=== PATIENT | female | born 1980 | race Caucasian/White ===

== ENCOUNTER 2017-12-24 01:36 | Inpatient (IN) | payer MEDICAID ==
[2017-12-24] MEDS ORDERED: NORMAL SALINE 1000 ML 1,000 ML IV ONE (02:10)
--- NOTE | 2017-12-24 02:10 | ER Document Report ---
ED General - General Chief Complaint: Chest Pain > 30 Stated Complaint: CHEST PAIN Time Seen by Provider: 12/24/17 02:04 Notes: Patient is a 37-year-old female who presents with complaint of chest pain shortness of breath. She says she has felt short of breath for approximately a week. Today started having chest pain and felt much more short of breath. She also has noticed some swelling and pain in her left leg. No fevers. No formed. No diarrhea. Patient has no history of PE or DVT. She does smoke. She denies history of asthma. He does take Percocet occasionally due to previous history of wedge compression fractures in her back. She also takes Adderall. There has been no recent changes in the dosages of her medications. Her mother has a history of PE and DVT. TRAVEL OUTSIDE OF THE [place] IN LAST 30 DAYS: No - Related Data Allergies/Adverse Reactions: sulfamethoxazole [From Bactrim] Allergy (Verified 12/24/17 02:19) trimethoprim [From Bactrim] Allergy (Verified 12/24/17 02:19) Past Medical History - Social History Smoking Status: Current Every Day Smoker Frequency of alcohol use: None Drug Abuse: None Family History: Reviewed & Not Pertinent Review of Systems - Review of Systems Notes: My Normal Review Basic REVIEW OF SYSTEMS: CONSTITUTIONAL : Denies fever, chills, or sweats. Denies recent illness. EENT: Denies eye, ear, throat, or mouth pain or symptoms. Denies nasal or sinus congestion. CARDIOVASCULAR: Has chest pain RESPIRATORY: Difficulty breathing. GASTROINTESTINAL: Denies abdominal pain. Denies nausea, vomiting, or diarrhea. GENITOURINARY: Denies difficulty urinating, painful urination, burning, frequency, or blood in urine. MUSCULOSKELETAL: Denies neck or back pain or joint pain or swelling. SKIN: Denies rash or skin lesions. NEUROLOGICAL: Denies altered mental status or loss of consciousness. Denies headache. Denies weakness or paralysis or loss of use of either side. Denies problems with gait or speech. Denies sensory or motor loss. ALL OTHER SYSTEMS REVIEWED AND NEGATIVE. Physical Exam - Vital signs Vitals: Resp Pulse Ox 19 92 12/24/17 01:54 12/24/17 01:54 - Notes Notes: General Appearance: Well nourished, alert, cooperative, mild acute distress, no obvious discomfort. Vitals: reviewed, See vital signs table. Head: no swelling or tenderness to the head Eyes: PERRL, EOMI, Conjuctiva clear Mouth: No decreasd moisture Neck: Supple, no neck tenderness, No thyromegaly Lungs: No wheezing, No rales, No rhonci, No accessory muscle use, good air exchange bilaterally. Heart: Tachycardic rate, Regular rythm, No murmur, no rub Abdomen: Normal BS, soft, No rigidity, No abdominal tenderness, No guarding, no rebound, no abdominal masses, no organomegaly Extremities: strength 5/5 in all extremities, good pulses in all extremities, no swelling or tenderness in the extremities, no edema. Skin: warm, dry, appropriate color, no rash Neuro: speech clear, oriented x 3, normal affect, responds appropriately to questions. Course - Re-evaluation Re-evalutation: 12/24/17 02:09 Patient's history is concerning for PE. We are obtaining lab work and will place an IV. I will order quick portable chest x-ray just to make sure were not missing a pneumothorax or something that does not require CT scan. I suspect that the chest x-ray will be normal. Once I see she has a normal chest x-ray I will order the CT angio of her chest. Patient's blood pressure is normal. Heart rate is little bit high. She is currently stable. 12/24/17 02:56 Since chest x-ray shows possibly pneumonia. Clinically history is not consistent with pneumonia in that she has not had congestion or fevers. Sometimes pulmonary emboli can cause similar infiltrative processes on chest x- ray. Her clinical history is much more concerning for pulmonary emboli. I will continue with a CTA of the chest. I will order flu swab as well. 12/24/17 04:20 12/24/17 04:23 CT does confirm that this most likely pneumonia. She does have a leukocytosis. She has no history of heart failure. I think this more likely pneumonia than heart failure especially since we have been seeing many patients recently with bilateral pneumonia with similar pattern. I will place her on antibiotics. Her pulse ox currently 90-94% at rest and her heart rate is 125-130. I do not think it is safe for her to go home. I will speak with hospitalist, Dr. Brown , about consideration for admission. 12/24/17 04:[address] Brown who agrees to accept the patient for admission. Dictation of this chart was performed using voice recognition software; therefore, there may be some unintended grammatical errors. - Vital Signs Vital signs: Temp Pulse Resp BP Pulse Ox 23 H 162/83 H 94 12/24/17 03:07 12/24/17 02:31 12/24/17 02:31 - Laboratory Result Diagrams: 12/24/17 02:15 12/24/17 02:15 Laboratory results interpreted by me: 12/24/17 12/24/17 02:15 02:15 WBC 13.7 H Absolute Neutrophils 9.8 H Glucose 149 H - EKG Interpretation by Me Additional EKG results interpreted by me: 12/24/17 02:27 EKG is reviewed and interpreted by me. EKG shows sinus tachycardia with rate of [address] segment elevation. Slight ST segment depression in the lateral precordial leads. ND interval, QRS duration, QTc intervals are within normal range. No old EKG available for comparison. Discharge - Discharge Clinical Impression: Pneumonia Qualifiers: Pneumonia type: due to unspecified organism Laterality: bilateral Lung location : lower lobe of lung Qualified Code(s): J18.9 - Pneumonia, unspecified organism Condition: Stable Disposition: ADMITTED OBSERVATION Admitting Provider: Hospitalist Unit Admitted: Telemetry Referrals: MARLO FONTAINE MD [Primary Care Provider] - Follow up as needed
[2017-12-24 02:30] LABS: ABSOLUTE BASOPHILS # (AUTO) 0.1 10^3/uL (0.0-0.2); ABSOLUTE EOSINOPHILS # (AUTO) 0.4 10^3/uL (0.0-0.6); ABSOLUTE LYMPHOCYTES (AUTO) 2.8 10^3/uL (0.5-4.7); ABSOLUTE MONOCYTES (AUTO) 0.7 10^3/uL (0.1-1.4); ABSOLUTE NEUT (AUTO) 9.8 10^3/uL (1.7-8.2); BASOPHILS % (AUTO) 0.7 % (0-2); EOSINOPHILS % (AUTO) 2.8 % (0-6); HEMATOCRIT 37.4 % (36.0-47.0); HEMOGLOBIN 12.6 g/dL (12.0-15.5); LYMPHOCYTES % (AUTO) 20.4 % (13-45); MEAN CORPUSCULAR HEMOGLOBIN 28.7 pg (27.0-33.4); MEAN CORPUSCULAR HGB CONC 33.8 g/dL (32.0-36.0); MEAN CORPUSCULAR VOLUME 85 fl (80-97); PLATELET COUNT 233 10^3/uL (150-450); RED BLOOD COUNT 4.41 10^6/uL (3.72-5.28); RED CELL DISTRIBUTION WIDTH 13.6 % (11.5-14.0); SEGMENTED NEUTROPHILS % (AUTO) 71.1 % (42-78); TOTAL CELLS COUNTED % (AUTO) 100 %; WHITE BLOOD COUNT 13.7 10^3/uL (4.0-10.5)
[2017-12-24 02:32] LABS: INTERNATIONAL RATION (INR) 0.94; PROTHROMBIN TIME 13.2 SEC (11.4-15.4)
[2017-12-24 02:33] LABS: PARTIAL THROMBOPLASTIN TIME 32.7 SEC (23.5-35.8)
[2017-12-24 02:50] LABS: ANION GAP 7 (5-19); BLOOD UREA NITROGEN 15 mg/dL (7-20); CALCIUM 10.1 mg/dL (8.4-10.2); CARBON DIOXIDE 27 mmol/L (22-30); CHLORIDE 105 mmol/L (98-107); GLUCOSE 149 mg/dL (75-110); POTASSIUM 3.8 mmol/L (3.6-5.0); SODIUM 139.3 mmol/L (137-145)
--- NOTE | 2017-12-24 02:53 | RADIOLOGY REPORT (SQ) ---
EXAM DESCRIPTION: CHEST SINGLE VIEW COMPLETED DATE/TIME: 12/24/2017 2:46 am REASON FOR STUDY: dyspnea, chest pain COMPARISON: None. EXAM PARAMETERS: NUMBER OF VIEWS: One view. TECHNIQUE: Single frontal radiographic view of the chest acquired. RADIATION DOSE: NA LIMITATIONS: None. FINDINGS: LUNGS AND PLEURA: Airspace opacities are seen at the bilateral lung bases. No sizable ple ural effusion or pneumothorax. MEDIASTINUM AND HILAR STRUCTURES: No masses. Contour normal. HEART AND VASCULAR STRUCTURES: The heart is enlarged. There is central vascular congestion. BONES: No acute findings. HARDWARE: None in the chest. IMPRESSION: Cardiomegaly and central vascular congestion. Bibasilar airspace opacities, may represe nt asymmetric pulmonary edema and/or pneumonia. TECHNICAL DOCUMENTATION: JOB ID: [id number] [place]-[id number] [employer] (ABAM)- All Rights Reserved
[2017-12-24 03:33] LABS: A TYPE INFLUENZA AG NEGATIVE (NEGATIVE); B INFLUENZA AG NEGATIVE (NEGATIVE)
--- NOTE | 2017-12-24 04:04 | RADIOLOGY REPORT (SQ) ---
EXAM DESCRIPTION: CTA CHEST COMPLETED DATE/TIME: 12/24/2017 3:33 am REASON FOR STUDY: dyspnea COMPARISON: Chest x-ray 01/01/2018. TECHNIQUE: CT scan of the chest performed using helical scanning technique with dynamic intravenous contrast injection. Images reviewed with lung, soft tissue and bone windows. Reconstructed coronal and sagittal MPR images reviewed. Additional 3 dimensional post-processing performed to develop Maximal Intensity Projection images (ND P). All images stored on PACS. All CT scanners at this facility use dose modulation, iterative reconstruction, and/or weight based d osing when appropriate to reduce radiation dose to as low as reasonably achievable (ALARA). [facility]: Dose Right [facility]: CareDose [facility]: Dose Right [facility]: Teradose 4D [facility]: IntelligentM CONTRAST TYPE AND DOSE: contrast/concentration: Isovue 370.00 mg/ml; Total Contrast Delivered: 83.0 ml; Total Saline Delivered: 110.0 ml Contrast bolus optimized for the pulmonary arteries. Not diagnostic for the aorta. RENAL FUNCTION: Creatinine 0.72 RADIATION DOSE: CT Rad equipment meets quality standard of care and radiation dose reduction techniq ues were employed. CTDIvol: 16.5 - 32.0 mGy. DLP: 1215 mGy-cm. . LIMITATIONS: Motion. FINDINGS: LUNGS AND PLEURA: There are small bilateral pleural effusions. There is diffuse septal th ickening, consistent with interstitial edema. There are patchy bilateral ground-glass opacities. Th ere is a 6 mm pleural-based nodule at the right middle lobe (image 62/133). There is a 6 mm pleural- based nodule at the left lower lobe (image 64/133). No pneumothorax. AORTA AND GREAT VESSELS: No thoracic aortic aneurysm. Contrast bolus not optimized for the aorta. HEART: The heart is enlarged. No pericardial effusion. No significant coronary artery calcification s. PULMONARY ARTERIES: No emboli visualized in the main pulmonary arteries or the segmental branches. HILAR AND MEDIASTINAL STRUCTURES: Right hilar lymph node measuring 2.7 x 2.0 cm. Subcarinal lymph no de measuring 2.1 x 2.7 cm. Left infrahilar lymph node measuring 1.5 x 2.1 cm. Wedge-shaped soft tis stephy density in the anterior mediastinum, may represent residual tissue. HARDWARE: None in the chest. UPPER ABDOMEN: Status post cholecystectomy. Limited exam. BONES: Multilevel degenerative changes in the spine. 3D MIPS: Confirm above findings. IMPRESSION: 1. No pulmonary emboli. 2. Cardiomegaly. 3. Small bilateral pleural effusions and interstitial edema. Patchy bilateral ground-glass opacities , may represent asymmetric pulmonary edema and/or pneumonia. 4. Mediastinal and hilar adenopathy. 5. Bilateral 6 mm pulmonary nodules. Followup CT thorax in 3 months recommended to re-evaluate. COMMENT: Quality ID # [id number]: Final reports with documentation of one or more dose reduction techniques (e.g., Automated exposure control, adjustment of the mA and/or kV according to patient size, use of iterative reconstruction technique) TECHNICAL DOCUMENTATION: JOB ID: [id number] [place]-[id number] 2010 [employer]- All Rights Reserved
[2017-12-24] MEDS ORDERED: LEVOFLOXACIN 750 MG/D5W RTU 750 MG/150 ML RTUPB IV ONE (04:19)
[2017-12-24] MEDS ORDERED: ACETAMINOPHEN 325 MG TABLET PO PRN (04:52)
[2017-12-24] MEDS ORDERED: CHLORPHENIRAMINE MALEATE 4 MG TABLET PO ONE (04:52)
[2017-12-24] MEDS ORDERED: IPRATROPIUM/ALBUTEROL 0.5-2.5 MG/3 ML AMPUL NEB PRN (04:52)
[2017-12-24] MEDS: NORMAL SALINE 1000 ML 1,000 ML IV PRN ×2 (05:32→21:49)
[2017-12-24] MEDS: HEPARIN SOD (PORCINE) 5,000 UNIT/ML 1 ML SYRINGE SUBCUT SCH ×3 (05:33→21:58)
--- NOTE | 2017-12-24 05:33 | PDOC H&P ---
History of Present Illness Admission Date/PCP: MARLO FONTAINE MD Patient complains of: Shortness of breath and chest pain History of Present Illness: ERIC KNIGHT is a 37 year old female with a past medical history of morbid obesity, Depression Patient denies homicidal or suicidal ideation. I Will evaluate education reconciliation, TSH and obtain urine drug screen, consider SSRI and or mental health consultation. Tobacco dependent, ADHD and chronic pain from compression fracture of the thoracic spine. Patient presents with 48 hours of shortness of breath and nonproductive cough and developing chest tightness well climbing stairs prompting her to seek evaluation emergency room. She is found to have tachypnea, tachycardia and leukocytosis. CTA of the chest reveals bilateral pneumonia without emboli. She started on empiric antibiotics and referred to the hospitalist for admission. She denies current pain, recent change in medications or previous pneumonia. She admits exposure to daughter with RSV pneumonia. Past Medical History Endocrine Medical History: Reports: Obesity Social History Information Source: Patient Lives with: Spouse/Significant other Smoking Status: Current Every Day Smoker Frequency of Alcohol Use: None Drugs: None - Advance Directive Resuscitation Status: Full Code Family History Family History: Reviewed & Not Pertinent Parental Family History Reviewed: Yes Children Family History Reviewed: Yes Sibling(s) Family History Reviewed.: Yes Medication/Allergy Allergies/Adverse Reactions: sulfamethoxazole [From Bactrim] Allergy (Verified 12/24/17 02:19) trimethoprim [From Bactrim] Allergy (Verified 12/24/17 02:19) Review of Systems Constitutional: ABSENT: chills, fever(s), headache(s), weight gain, weight loss Eyes: ABSENT: visual disturbances Ears: ABSENT: hearing changes Cardiovascular: ABSENT: chest pain, dyspnea on exertion, edema, orthropnea, palpitations Respiratory: ABSENT: cough, hemoptysis Gastrointestinal: ABSENT: abdominal pain, constipation, diarrhea, hematemesis, hematochezia, nausea, vomiting Genitourinary: ABSENT: dysuria, hematuria Musculoskeletal: ABSENT: joint swelling Integumentary: ABSENT: rash, wounds Neurological: ABSENT: abnormal gait, abnormal speech, confusion, dizziness, focal weakness, syncope Psychiatric: ABSENT: anxiety, depression, homidical ideation, suicidal ideation Endocrine: ABSENT: cold intolerance, heat intolerance, polydipsia, polyuria Hematologic/Lymphatic: ABSENT: easy bleeding, easy bruising Physical Exam Vital Signs: Temp Pulse Resp BP Pulse Ox 23 H 162/83 H 94 12/24/17 03:07 12/24/17 02:31 12/24/17 02:31 Intake & Output 12/22/17 12/23/17 12/24/17 11:59 11:59 11:59 Weight 117.934 kg General appearance: PRESENT: cooperative, mild distress, morbidly obese, well- developed, well-nourished Head exam: PRESENT: atraumatic, normocephalic Eye exam: PRESENT: conjunctiva pink, EOMI, PERRLA. ABSENT: scleral icterus Ear exam: PRESENT: normal external ear exam Mouth exam: PRESENT: moist, tongue midline Neck exam: ABSENT: carotid bruit, JVD, lymphadenopathy, thyromegaly Respiratory exam: PRESENT: prolonged expiratory phas, rales, retraction, rhonchi , symmetrical, tachypnea. ABSENT: wheezes Cardiovascular exam: PRESENT: RRR. ABSENT: diastolic murmur, rubs, systolic murmur Pulses: PRESENT: normal dorsalis pedis pul Vascular exam: PRESENT: normal capillary refill GI/Abdominal exam: PRESENT: normal bowel sounds, soft. ABSENT: distended, guarding, mass, organolmegaly, rebound, tenderness Rectal exam: PRESENT: deferred Extremities exam: PRESENT: full ROM. ABSENT: calf tenderness, clubbing, pedal edema Neurological exam: PRESENT: alert, awake, oriented to person, oriented to place , oriented to time, oriented to situation, CN II-XII grossly intact. ABSENT: motor sensory deficit Psychiatric exam: PRESENT: appropriate affect, normal mood. ABSENT: homicidal ideation, suicidal ideation Skin exam: PRESENT: dry, intact, warm. ABSENT: cyanosis, rash Results Laboratory Results: 12/24/17 02:15 12/24/17 02:15 12/24/17 12/24/17 02:15 02:15 WBC 13.7 H RBC 4.41 Hgb 12.6 Hct 37.4 MCV 85 MCH 28.7 MCHC 33.8 RDW 13.6 Plt Count 233 Seg Neutrophils % 71.1 Lymphocytes % 20.4 Monocytes % 5.0 Eosinophils % 2.8 Basophils % 0.7 Absolute Neutrophils 9.8 H Absolute Lymphocytes 2.8 Absolute Monocytes 0.7 Absolute Eosinophils 0.4 Absolute Basophils 0.1 Sodium 139.3 Potassium 3.8 Chloride 105 Carbon Dioxide 27 Anion Gap 7 BUN 15 Creatinine 0.72 Est GFR ( Amer) > 60 Est GFR (Non-Af Amer) > 60 Glucose 149 H Calcium 10.1 12/24/17 12/24/17 02:15 02:15 Troponin I 0.017 NT-Pro-B Natriuret Pep 2710 H Impressions: Chest X-Ray 12/24/17 02:09 IMPRESSION: Cardiomegaly and central vascular congestion. Bibasilar airspace opacities, may represent asymmetric pulmonary edema and/or pneumonia. Chest/Abdomen CTA 12/24/17 02:55 IMPRESSION: 1. No pulmonary emboli. 2. Cardiomegaly. 3. Small bilateral pleural effusions and interstitial edema. Patchy bilateral ground-glass opacities, may represent asymmetric pulmonary edema and/or pneumonia. 4. Mediastinal and hilar adenopathy. 5. Bilateral 6 mm pulmonary nodules. Followup CT thorax in 3 months recommended to re-evaluate. Assessment & Plan - Diagnosis (1) Pneumonia Qualifiers: Pneumonia type: due to unspecified organism Laterality: bilateral Lung location: lower lobe of lung Qualified Code(s): J18.9 - Pneumonia, unspecified organism Is this a current diagnosis for this admission?: Yes Plan: Telemetry bed, pneumonia care set, incentive spirometry. Follow-up CBC (2) Morbid obesity Is this a current diagnosis for this admission?: Yes Plan: Morbid obesity will evaluate for metabolic cause with evaluation of thyroid function and dietitian consultation (3) Tobacco abuse Is this a current diagnosis for this admission?: Yes Plan: Tobacco Dependence patient received tobacco cessation counseling and offered nicotine replacement options - Time Time Spent: 30 to 50 Minutes - Inpatient Certification Medical Necessity: Need Close Monitoring Due to Risk of Patient Decompensation
[2017-12-24] MEDS ORDERED: CHLORPHENIRAMINE MALEATE 4 MG TABLET ONE (06:01)
[2017-12-24] MEDS: IPRATROPIUM/ALBUTEROL 0.5-2.5 MG/3 ML AMPUL NEB SCH ×2 (08:01→16:23)
[2017-12-24] MEDS ORDERED: METOPROLOL TARTRATE 50 MG TABLET ONE (08:32)
--- NOTE | 2017-12-24 08:37 | EKG REPORT ---
SEVERITY:- ABNORMAL ECG - SINUS TACHYCARDIA ATRIAL PREMATURE COMPLEX LEFT ATRIAL ABNORMALITY LEFT VENTRICULAR HYPERTROPHY : Confirmed by: Yao Simon MD 24-Dec-2017 08:36:31
[2017-12-24] MEDS: METOPROLOL TARTRATE 25 MG TABLET PO SCH ×2 (08:54→21:44)
[2017-12-24 09:36] LABS: CREATINE KINASE MB 0.66 ng/mL (<4.55); TROPONIN I 0.021 ng/mL
--- NOTE | 2017-12-24 09:55 | PDOC PROGRESS REPORT ---
Subjective Progress Note for:: 12/24/17 Subjective:: Patient is seen on rounds. She is resting in bed. She states she still has continuous midsternal chest heaviness which has been constant. She has an intermittent nonproductive cough and shortness of breath with exertion. She is not requiring any oxygen at the present time. She denies any nausea, vomiting or diarrhea. She denies any acid reflux symptoms. She denies any arthralgias or myalgias. Remaining review of systems are negative. Reason For Visit: COPD, MORBID OBESITY,TOBACCO, PNEUMONIA Physical Exam Vital Signs: Temp Pulse Resp BP Pulse Ox 110 H 24 H 146/102 H 95 12/24/17 08:01 12/24/17 08:02 12/24/17 08:02 12/24/17 08:02 General appearance: PRESENT: no acute distress, morbidly obese, well-developed, well-nourished Head exam: PRESENT: atraumatic, normocephalic Eye exam: PRESENT: conjunctiva pink, EOMI, PERRLA. ABSENT: scleral icterus Ear exam: PRESENT: normal external ear exam Mouth exam: PRESENT: moist, tongue midline Neck exam: ABSENT: carotid bruit, JVD, lymphadenopathy, thyromegaly Respiratory exam: PRESENT: crackles - bilateral bases, symmetrical, unlabored Cardiovascular exam: PRESENT: RRR, +S1, +S2, tachycardia Pulses: PRESENT: normal dorsalis pedis pul Vascular exam: PRESENT: normal capillary refill GI/Abdominal exam: PRESENT: normal bowel sounds, soft. ABSENT: distended, guarding, mass, organolmegaly, rebound, tenderness Rectal exam: PRESENT: deferred Extremities exam: PRESENT: full ROM. ABSENT: calf tenderness, clubbing, pedal edema Neurological exam: PRESENT: alert, awake, oriented to person, oriented to place , oriented to time, oriented to situation, CN II-XII grossly intact. ABSENT: motor sensory deficit Psychiatric exam: PRESENT: appropriate affect, normal mood. ABSENT: homicidal ideation, suicidal ideation Skin exam: PRESENT: dry, intact, warm. ABSENT: cyanosis, rash Results Laboratory Results: 12/24/17 12/24/17 08:52 08:52 Creatine Kinase 39 CK-MB (CK-2) 0.66 Troponin I 0.021 Impressions: Chest X-Ray 12/24/17 02:09 IMPRESSION: Cardiomegaly and central vascular congestion. Bibasilar airspace opacities, may represent asymmetric pulmonary edema and/or pneumonia. Chest/Abdomen CTA 12/24/17 02:55 IMPRESSION: 1. No pulmonary emboli. 2. Cardiomegaly. 3. Small bilateral pleural effusions and interstitial edema. Patchy bilateral ground-glass opacities, may represent asymmetric pulmonary edema and/or pneumonia. 4. Mediastinal and hilar adenopathy. 5. Bilateral 6 mm pulmonary nodules. Followup CT thorax in 3 months recommended to re-evaluate. Assessment & Plan - Diagnosis (1) Pneumonia Qualifiers: Pneumonia type: due to unspecified organism Laterality: bilateral Lung location: lower lobe of lung Qualified Code(s): J18.9 - Pneumonia, unspecified organism Is this a current diagnosis for this admission?: Yes Plan: Patient was started on IV levaquin for bilateral opacities, medistinal adenopathy on CT scan and leucocytosis. She continues to complain of chest pressure that is constant and shortness of breath with exertion. Will add neublizer treatments and steroids (2) Shortness of breath Is this a current diagnosis for this admission?: Yes Plan: CTA ruled out PE. She does have some cardiomegaly, and bilateral pleural effusions. She is morbidly obese as well. Shortness of breath may be due to combination of factors. Echo is pending. She will need [address] up of CT chest with PCP (3) Chest pain Qualifiers: Chest pain type: pleurodynia Qualified Code(s): R07.81 - Pleurodynia Is this a current diagnosis for this admission?: Yes Plan: Pain has been constant for days not likely cardiac in nature. Denies GERD symptoms. Being treated for pneumonia most likely pleuritic in nature (4) Morbid obesity Is this a current diagnosis for this admission?: Yes Plan: Counseled (5) Tobacco abuse Is this a current diagnosis for this admission?: Yes Plan: Counseled. - Time Time Spent with patient: 15-24 minutes Total Critical Time (Minutes): 20 Smoking Cessation Education: 3 to 10 minutes Medications reviewed and adjusted accordingly: Yes Anticipated discharge: Home Within: within 48 hours
[2017-12-24] MEDS: GUAIFENESIN 600 MG TABLET.SA PO SCH ×2 (10:38→21:43)
[2017-12-24] MEDS: FLUTICASONE NASAL SPRAY 50 MCG/SPRY 120 SPRAY/16 GM NASL SCH ×2 (11:01→22:03)
[2017-12-24] MEDS: METHYLPREDNISOLONE INJ 40 MG/1 ML SDV IV SCH ×2 (14:18→21:43)
[2017-12-24 16:09] LABS: CREATINE KINASE MB 0.89 ng/mL (<4.55); TROPONIN I 0.019 ng/mL
[2017-12-24] MEDS: LEVOFLOXACIN 750 MG/D5W RTU 750 MG/150 ML RTUPB IV SCH (21:43)
[2017-12-25] MEDS: IPRATROPIUM/ALBUTEROL 0.5-2.5 MG/3 ML AMPUL NEB SCH ×4 (00:33→23:56)
[2017-12-25] MEDS: METHYLPREDNISOLONE INJ 40 MG/1 ML SDV IV SCH ×3 (05:12→22:56)
[2017-12-25] MEDS: HEPARIN SOD (PORCINE) 5,000 UNIT/ML 1 ML SYRINGE SUBCUT SCH ×3 (05:18→22:56)
[2017-12-25 05:40] LABS: ABSOLUTE BASOPHILS # (AUTO) 0.1 10^3/uL (0.0-0.2); ABSOLUTE LYMPHOCYTES (AUTO) 0.9 10^3/uL (0.5-4.7); ABSOLUTE MONOCYTES (AUTO) 0.1 10^3/uL (0.1-1.4); ABSOLUTE NEUT (AUTO) 8.8 10^3/uL (1.7-8.2); BASOPHILS % (AUTO) 0.5 % (0-2); EOSINOPHILS % (AUTO) 0.1 % (0-6); HEMATOCRIT 34.9 % (36.0-47.0); HEMOGLOBIN 12.1 g/dL (12.0-15.5); LYMPHOCYTES % (AUTO) 9.5 % (13-45); MEAN CORPUSCULAR HEMOGLOBIN 29.3 pg (27.0-33.4); MEAN CORPUSCULAR HGB CONC 34.6 g/dL (32.0-36.0); MEAN CORPUSCULAR VOLUME 85 fl (80-97); MONOCYTES % (AUTO) 1.2 % (3-13); PLATELET COUNT 160 10^3/uL (150-450); RED BLOOD COUNT 4.11 10^6/uL (3.72-5.28); RED CELL DISTRIBUTION WIDTH 13.6 % (11.5-14.0); SEGMENTED NEUTROPHILS % (AUTO) 88.7 % (42-78); TOTAL CELLS COUNTED % (AUTO) 100 %; WHITE BLOOD COUNT 9.9 10^3/uL (4.0-10.5)
[2017-12-25 05:50] LABS: ANION GAP 11 (5-19); BLOOD UREA NITROGEN 15 mg/dL (7-20); CALCIUM 9.8 mg/dL (8.4-10.2); CARBON DIOXIDE 22 mmol/L (22-30); CHLORIDE 106 mmol/L (98-107); GLUCOSE 194 mg/dL (75-110); POTASSIUM 4.3 mmol/L (3.6-5.0); SODIUM 139.1 mmol/L (137-145)
[2017-12-25] MEDS: METOPROLOL TARTRATE 25 MG TABLET PO SCH ×2 (09:24→22:56)
[2017-12-25] MEDS: GUAIFENESIN 600 MG TABLET.SA PO SCH ×2 (09:24→22:56)
[2017-12-25] MEDS: FLUTICASONE NASAL SPRAY 50 MCG/SPRY 120 SPRAY/16 GM NASL SCH ×2 (12:27→22:56)
--- NOTE | 2017-12-25 18:34 | PDOC PROGRESS REPORT ---
Subjective Progress Note for:: 12/25/17 Subjective:: Patient states that she feels much better and would like to go home. Nursing states that they have not had any issues with patient overnight. Was made aware that we may not be to discharge her home due to echo results pending and blood culture demonstrating bacterial growth. Reason For Visit: COPD, MORBID OBESITY,TOBACCO, PNEUMONIA Physical Exam Vital Signs: Temp Pulse Resp BP Pulse Ox 98.1 F 98 16 117/56 L 96 12/25/17 11:00 12/25/17 16:34 12/25/17 16:34 12/25/17 11:00 12/25/17 16:34 Intake & Output 12/24/17 12/25/17 12/26/17 06:59 06:59 06:59 Intake Total 892 0 Output Total 300 Balance 592 0 Weight 124.3 kg 124.3 kg 124.3 kg General appearance: PRESENT: no acute distress, well-developed, well-nourished Head exam: PRESENT: atraumatic, normocephalic Eye exam: PRESENT: conjunctiva pink, EOMI. ABSENT: scleral icterus Ear exam: PRESENT: normal external ear exam Mouth exam: PRESENT: moist, tongue midline Neck exam: ABSENT: carotid bruit, JVD, lymphadenopathy, thyromegaly Respiratory exam: PRESENT: clear to auscultation allison. ABSENT: rales, rhonchi, wheezes Cardiovascular exam: PRESENT: RRR. ABSENT: diastolic murmur, rubs, systolic murmur Pulses: PRESENT: normal dorsalis pedis pul Vascular exam: PRESENT: normal capillary refill GI/Abdominal exam: PRESENT: normal bowel sounds, soft. ABSENT: distended, guarding, mass, organolmegaly, rebound, tenderness Rectal exam: PRESENT: deferred Extremities exam: PRESENT: full ROM. ABSENT: calf tenderness, clubbing, pedal edema Neurological exam: PRESENT: alert, awake, oriented to person, oriented to place , oriented to time, oriented to situation, CN II-XII grossly intact. ABSENT: motor sensory deficit Psychiatric exam: PRESENT: appropriate affect, normal mood. ABSENT: homicidal ideation, suicidal ideation Skin exam: PRESENT: dry, intact, warm. ABSENT: cyanosis, rash Results Laboratory Results: 12/25/17 04:39 12/25/17 04:39 12/25/17 12/25/17 04:39 04:39 WBC 9.9 RBC 4.11 Hgb 12.1 Hct 34.9 L MCV 85 MCH 29.3 MCHC 34.6 RDW 13.6 Plt Count 160 Seg Neutrophils % 88.7 H Lymphocytes % 9.5 L Monocytes % 1.2 L Eosinophils % 0.1 Basophils % 0.5 Absolute Neutrophils 8.8 H Absolute Lymphocytes 0.9 Absolute Monocytes 0.1 Absolute Eosinophils 0.0 Absolute Basophils 0.1 Sodium 139.1 Potassium 4.3 Chloride 106 Carbon Dioxide 22 Anion Gap 11 BUN 15 Creatinine 0.58 Est GFR ( Amer) > 60 Est GFR (Non-Af Amer) > 60 Glucose 194 H Calcium 9.8 12/24/17 12/24/17 12/24/17 08:52 08:52 15:03 Creatine Kinase 39 31 CK-MB (CK-2) 0.66 Troponin I 0.021 12/24/17 15:03 Creatine Kinase CK-MB (CK-2) 0.89 Troponin I 0.019 Impressions: Chest X-Ray 12/24/17 02:09 IMPRESSION: Cardiomegaly and central vascular congestion. Bibasilar airspace opacities, may represent asymmetric pulmonary edema and/or pneumonia. Chest/Abdomen CTA 12/24/17 02:55 IMPRESSION: 1. No pulmonary emboli. 2. Cardiomegaly. 3. Small bilateral pleural effusions and interstitial edema. Patchy bilateral ground-glass opacities, may represent asymmetric pulmonary edema and/or pneumonia. 4. Mediastinal and hilar adenopathy. 5. Bilateral 6 mm pulmonary nodules. Followup CT thorax in 3 months recommended to re-evaluate. Assessment & Plan - Diagnosis (1) Chest pain Qualifiers: Chest pain type: pleurodynia Qualified Code(s): R07.81 - Pleurodynia Is this a current diagnosis for this admission?: Yes Plan: Troponins neg. Echo pending. (2) Morbid obesity Is this a current diagnosis for this admission?: Yes Plan: Encourage dietary changes. (3) Pneumonia Qualifiers: Pneumonia type: due to unspecified organism Laterality: bilateral Lung location: lower lobe of lung Qualified Code(s): J18.9 - Pneumonia, unspecified organism Is this a current diagnosis for this admission?: Yes Plan: Will continue current treatment treatment plan. (4) Shortness of breath Is this a current diagnosis for this admission?: Yes Plan: Resolved. (5) Tobacco abuse Is this a current diagnosis for this admission?: Yes Plan: Encourage stop smoking. (6) Bacteremia Is this a current diagnosis for this admission?: Yes Plan: Most likely Contamination: Will continue to wait for additional information. - Time Time Spent with patient: 15-24 minutes
[2017-12-25] MEDS: LEVOFLOXACIN 750 MG/D5W RTU 750 MG/150 ML RTUPB IV SCH (22:56)
[2017-12-26 04:40] LABS: ABSOLUTE LYMPHOCYTES (AUTO) 1.1 10^3/uL (0.5-4.7); ABSOLUTE MONOCYTES (AUTO) 0.5 10^3/uL (0.1-1.4); BASOPHILS % (AUTO) 0.2 % (0-2); HEMATOCRIT 36.9 % (36.0-47.0); HEMOGLOBIN 12.4 g/dL (12.0-15.5); LYMPHOCYTES % (AUTO) 7.7 % (13-45); MEAN CORPUSCULAR HEMOGLOBIN 28.9 pg (27.0-33.4); MEAN CORPUSCULAR HGB CONC 33.6 g/dL (32.0-36.0); MEAN CORPUSCULAR VOLUME 86 fl (80-97); MONOCYTES % (AUTO) 3.5 % (3-13); PLATELET COUNT 206 10^3/uL (150-450); RED BLOOD COUNT 4.29 10^6/uL (3.72-5.28); RED CELL DISTRIBUTION WIDTH 13.8 % (11.5-14.0); SEGMENTED NEUTROPHILS % (AUTO) 88.6 % (42-78); TOTAL CELLS COUNTED % (AUTO) 100 %; WHITE BLOOD COUNT 14.7 10^3/uL (4.0-10.5)
[2017-12-26 05:06] LABS: ANION GAP 9 (5-19); BLOOD UREA NITROGEN 19 mg/dL (7-20); CALCIUM 9.8 mg/dL (8.4-10.2); CARBON DIOXIDE 21 mmol/L (22-30); CHLORIDE 107 mmol/L (98-107); GLUCOSE 253 mg/dL (75-110); POTASSIUM 4.9 mmol/L (3.6-5.0); SODIUM 137.3 mmol/L (137-145)
[2017-12-26] MEDS: HEPARIN SOD (PORCINE) 5,000 UNIT/ML 1 ML SYRINGE SUBCUT SCH ×2 (06:32→13:50)
[2017-12-26] MEDS: METHYLPREDNISOLONE INJ 40 MG/1 ML SDV IV SCH ×2 (06:32→13:50)
[2017-12-26] MEDS: IPRATROPIUM/ALBUTEROL 0.5-2.5 MG/3 ML AMPUL NEB SCH (08:44)
--- NOTE | 2017-12-26 09:10 | XCELERA REPORT ---
[address] [address] Transthoracic Echocardiogram Report Name: ERIC KNIGHT Age: 37 yrs Gender: Female : 1980 Patient Status: Inpatient Patient Location: [address] [place] [address] Study Date: 12/25/2017 09:23 AM Height: 63 in Weight: 260 lb BSA: 2.2 m2 Procedure: A complete two-dimensional transthoracic echocardiogram was performed (2D, M-mode, spectral and color flow Doppler). The study was technically adequate with some images being suboptimal in quality. Reason For Study: pulmonary edema Ordering Physician: ANGIE LEWIS Performed By: Martha Eric Interpretation Summary LV EF is 50% Left ventricular systolic function is borderline reduced. There is mild concentric left ventricular hypertrophy. The left ventricle is mildly dilated. Doppler measurements suggest pseudonormalized left ventricular relaxation, which is associated with grade II/IV or mild to moderate diastolic dysfunction There is mild global hypokinesis of the left ventricle. The right ventricle is grossly normal size. The right atrium is normal in size The left atrium is moderately dilated. There is a mild to moderate amount of mitral regurgitation There is no mitral valve stenosis. There is no aortic valve stenosis No aortic regurgitation is present. There is a mild amount of tricuspid regurgitation There is mild to moderate pulmonary hypertension by echo Right ventricular systolic pressure is estimated to be elevated at 40- 50mmHg. Minimal pericardial effusion. MMode/2D Measurements & Calculations RVDd: 3.7 cm LVIDd: 5.9 cm FS: 28.3 % MV Diam: 3.5 cm IVSd: 1.2 cm LVIDs: 4.2 cm EDV(Teich): 174.6 ml LVPWd: 1.2 cm ESV(Teich): 80.5 ml EF(Teich): 53.9 % Ao root diam: 2.2 cm LVOT diam: 2.0 cm Ao root area: 4.0 [id number] area: 3.1 cm2 LA dimension: 5.3 cm Doppler Measurements & Calculations MV E max jenn: MV area (1 diam): MV P1/2t max jenn: Ao V2 max: 147.0 cm/sec 9.5 cm2 146.4 cm/sec 195.5 cm/sec MV A max jenn: MV Flow area MV P1/2t: 38.8 msec Ao max P.2 cm/sec (1diam): 9.5 cm2 MVA(P1/2t): 5.7 cm2 15.3 mmHg MV E/A: 1.2 MV dec slope: IVAN(V,D): 1.9 cm2 1105 cm/sec2 LV V1 max PG: MR max jenn: PA V2 max: TR max jenn: 5.6 mmHg 483.7 cm/sec 118.5 cm/sec 298.0 cm/sec LV V1 max: MR max PG: PA max P.6 mmHg TR max P.9 cm/sec 93.6 mmHg 35.5 mmHg Left Ventricle The left ventricle is mildly dilated. There is mild concentric left ventricular hypertrophy. Left ventricular systolic function is borderline reduced. LV EF is 50%. Doppler measurements suggest pseudonormalized left ventricular relaxation, which is associated with grade II/IV or mild to moderate diastolic dysfunction. There is mild global hypokinesis of the left ventricle. Right Ventricle The right ventricle is grossly normal size. There is normal right ventricular wall thickness. The right ventricular systolic function is normal. Atria The right atrium is normal in size. The left atrium is moderately dilated. Interarterial septum not well visualized and not well dopplered. Cannot comment on ASD/PFO presence. Mitral Valve The mitral valve is grossly normal. There is no mitral valve stenosis. There is a mild to moderate amount of mitral regurgitation. Aortic Valve The aortic valve is grossly normal. There is no aortic valve stenosis. No aortic regurgitation is present. Tricuspid Valve The tricuspid valve is not well visualized, but is grossly normal. There is no tricuspid stenosis. There is a mild amount of tricuspid regurgitation. There is mild to moderate pulmonary hypertension by echo. Right ventricular systolic pressure is estimated to be elevated at 40-50mmHg. Pulmonic Valve The pulmonic valve is not well visualized. Great Vessels The aortic root is not well visualized. The inferior vena cava was not well visualized. Effusions Minimal pericardial effusion. : ANGIE LEWIS > Izabela Cortes
[2017-12-26] MEDS: GUAIFENESIN 600 MG TABLET.SA PO SCH (10:10)
[2017-12-26] MEDS: FLUTICASONE NASAL SPRAY 50 MCG/SPRY 120 SPRAY/16 GM NASL SCH (10:10)
[2017-12-26] MEDS: METOPROLOL TARTRATE 25 MG TABLET PO SCH (10:10)
[2017-12-26 13:33] VITALS: BP 141/82
--- NOTE | 2017-12-26 15:04 | PDOC DISCHARGE SUMMARY ---
General - Admit/Disc Date/PCP Admission Date/Primary Care Provider: 12/24/17 04:56 MARLO FONTAINE MD Discharge Date: 12/26/17 - Discharge Diagnosis (1) Pulmonary hypertension Is this a current diagnosis for this admission?: Yes Summary: supportive care. (2) Pneumonia Is this a current diagnosis for this admission?: Yes Summary: Pt continued on Levaquin for 5 days. (3) Morbid obesity Is this a current diagnosis for this admission?: Yes Summary: Encouraged dietary changes. BMP 48.7. (4) Tobacco abuse Is this a current diagnosis for this admission?: Yes Summary: Encouraged discontinuation of tobacco products. (5) Chest pain Is this a current diagnosis for this admission?: Yes Summary: Ruled Out. Troponins neg and Echo demonstrated a normal EF. (6) Shortness of breath Is this a current diagnosis for this admission?: Yes Summary: Secondary to Pneumonia: Resolved. (7) Bacteremia Is this a current diagnosis for this admission?: Yes Summary: Secondary to Contamination: No additional treatment required. - Additional Information Resuscitation Status: Full Code Discharge Diet: Cardiac Discharge Activity: Activity As Tolerated Prescriptions: Levofloxacin [Levaquin 750 mg Tablet] 750 mg PO DAILY #5 tablet Lisinopril 5 mg PO DAILY #30 tablet Metoprolol Tartrate 25 mg PO BID #60 tablet Prednisone 20 mg PO DAILY #4 tablet Home Medications: Dextroamphetamine/Amphetamine [Adderall Xr 30 mg Capsule] 30 mg PO DAILY Oxycodone HCl/Acetaminophen [Percocet 5-325 mg Tablet] 1 tab PO TIDP PRN Levofloxacin [Levaquin 750 mg Tablet] 750 mg PO DAILY #5 tablet 12/26/17 Lisinopril 5 mg PO DAILY #30 tablet 12/26/17 Metoprolol Tartrate 25 mg PO BID #60 tablet 12/26/17 Prednisone 20 mg PO DAILY #4 tablet 12/26/17 History of Present Illness Patient complains of: Shortness of breath History of Present Illness: ERIC KNIGHT is a 37 year old female presented to the hospital with complaint of shortness of breath. Pt reported that she has had chest tightness and nonproductive cough for several days. Hospital Course Hospital Course: Pt is a 37 year old who was diagnosed with Pneumonia. Pt was placed on antibiotics and steroids with breathing treatments. Pt improved within 24 hours. Pt also complained of chest pain which was secondary to pneumonia. Pt' s troponins neg and EF was with in normal EF. Pt was found to have Pulmonary Hypertension. Micro was contacted about blood culture and was told that it is most likely Staph hominis contaminant. Physical Exam Vital Signs: Temp Pulse Resp BP Pulse Ox 97.8 F 92 16 141/82 H 97 12/26/17 11:00 12/26/17 14:00 12/26/17 11:00 12/26/17 11:00 12/26/17 11:00 Intake & Output 12/25/17 12/26/17 12/27/17 06:59 06:59 06:59 Intake Total 892 2720 Output Total 300 Balance 592 2720 Weight 124.3 kg 124.8 kg General appearance: PRESENT: no acute distress, morbidly obese, well-developed, well-nourished Head exam: PRESENT: atraumatic, normocephalic Eye exam: PRESENT: conjunctiva pink, EOMI, PERRLA. ABSENT: scleral icterus Ear exam: PRESENT: normal external ear exam Mouth exam: PRESENT: moist, tongue midline Neck exam: ABSENT: carotid bruit, JVD, lymphadenopathy, thyromegaly Respiratory exam: PRESENT: clear to auscultation allison. ABSENT: rales, rhonchi, wheezes Cardiovascular exam: PRESENT: RRR. ABSENT: diastolic murmur, rubs, systolic murmur Pulses: PRESENT: normal dorsalis pedis pul Vascular exam: PRESENT: normal capillary refill GI/Abdominal exam: PRESENT: normal bowel sounds, soft. ABSENT: distended, guarding, mass, organolmegaly, rebound, tenderness Rectal exam: PRESENT: deferred Extremities exam: PRESENT: full ROM. ABSENT: calf tenderness, clubbing, pedal edema Neurological exam: PRESENT: alert, awake, oriented to person, oriented to place , oriented to time, oriented to situation, CN II-XII grossly intact. ABSENT: motor sensory deficit Psychiatric exam: PRESENT: appropriate affect, normal mood. ABSENT: homicidal ideation, suicidal ideation Skin exam: PRESENT: dry, intact, warm. ABSENT: cyanosis, rash Results Laboratory Results: 12/26/17 04:01 12/26/17 04:01 12/26/17 12/26/17 04:01 04:01 WBC 14.7 H RBC 4.29 Hgb 12.4 Hct 36.9 MCV 86 MCH 28.9 MCHC 33.6 RDW 13.8 Plt Count 206 Seg Neutrophils % 88.6 H Lymphocytes % 7.7 L Monocytes % 3.5 Eosinophils % 0.0 Basophils % 0.2 Absolute Neutrophils 13.0 H Absolute Lymphocytes 1.1 Absolute Monocytes 0.5 Absolute Eosinophils 0.0 Absolute Basophils 0.0 Sodium 137.3 Potassium 4.9 Chloride 107 Carbon Dioxide 21 L Anion Gap 9 BUN 19 Creatinine 0.67 Est GFR ( Amer) > 60 Est GFR (Non-Af Amer) > 60 Glucose 253 H Calcium 9.8 12/24/17 12/24/17 12/24/17 08:52 08:52 15:03 Creatine Kinase 39 31 CK-MB (CK-2) 0.66 Troponin I 0.021 12/24/17 15:03 Creatine Kinase CK-MB (CK-2) 0.89 Troponin I 0.019 Impressions: Chest X-Ray 12/24/17 02:09 IMPRESSION: Cardiomegaly and central vascular congestion. Bibasilar airspace opacities, may represent asymmetric pulmonary edema and/or pneumonia. Chest/Abdomen CTA 12/24/17 02:55 IMPRESSION: 1. No pulmonary emboli. 2. Cardiomegaly. 3. Small bilateral pleural effusions and interstitial edema. Patchy bilateral ground-glass opacities, may represent asymmetric pulmonary edema and/or pneumonia. 4. Mediastinal and hilar adenopathy. 5. Bilateral 6 mm pulmonary nodules. Followup CT thorax in 3 months recommended to re-evaluate. Plan Time Spent: Greater than 30 Minutes
== END 2017-12-26 15:41 | disposition home or self-care (01) | DRG 194 ==
LOC: ER 01:36 → EH 04:56 → OBSVTOIN 04:56 → 5 15:49
PROVIDERS: ADMIT Internal Medicine; ATTEND Internal Medicine
DX: J18.9 Pneumonia, unspecified organism (principal); R78.81 Bacteremia; Z68.42 Body mass index [BMI] 45.0-49.9, adult; I27.20 Pulmonary hypertension, unspecified; R07.9 Chest pain, unspecified; E66.01 Morbid (severe) obesity due to excess calories; F17.210 Nicotine dependence, cigarettes, uncomplicated
CPT/HCPCS: 36415; 71045; 71275; 80048; 82550; 82553; 83880; 84443; 84484; 85025; 85610; 85730; 87040; 87077; 87186; 87804; 93005; 93010; 93306; 94640; 94799; 96361; 96365; 96372; 99285; J1644; J1956; J2920; J3490; J7030; J7620